=== PATIENT | male | born 1990 | race African-American/Black ===

== ENCOUNTER 2023-08-05 08:09 | Emergency (ER) | payer MEDICAID ==
[2023-08-05] MEDS: Ibuprofen 600 MG Tab PO ONE (08:39)
[2023-08-05 09:25] LABS: CORONAVIRUS COVID-19 NAA NEGATIVE (NEGATIVE); INFLUENZA A NAA NEGATIVE (NEGATIVE); RESPIRATORY SYNCYTIAL VIR NAA NEGATIVE (NEGATIVE)
== END 2023-08-05 10:10 | disposition home or self-care (01) ==
LOC: JD.ED 08:09
DX: J02.9 Acute pharyngitis, unspecified (principal); B34.9 Viral infection, unspecified; F17.210 Nicotine dependence, cigarettes, uncomplicated
CPT/HCPCS: 0241U; 87651; 99283; A9270